=== PATIENT | male | born 1990 | race Caucasian/White ===

== ENCOUNTER 2017-03-20 07:15 | Day surgery (SDC) | payer BC ==
[2017-03-13 22:58] VITALS: BMI 21.4
[~2017-03-20 07:15] MED LIST: DEXAMETHASONE SOD PHOSPHATE 10 MG/ML 1 ML VIAL IV ONE; DEXAMETHASONE SOD PHOSPHATE 4 MG/ML 1 ML VIAL IV ONE; FAMOTIDINE 20 MG/2 ML VIAL IV ONE; HYDROmorphone 0.5 MG/0.5 ML SYRINGE IVP PRN; LACTATED RINGERS 1,000 ML IV SCH; MIDAZOLAM 2 MG/2 ML VIAL IV PRN; ONDANSETRON 4 MG/2 ML VIAL IVP ONE; ceFAZolin 1,000 MG in DEXTROSE/WATER 1 50ML.BAG IV ONE
[2017-03-20] MEDS: OXYMETAZOLINE 0.05% NASL SPRAY 1 SPRAY BOTTLE NASAL ONE ×4 (07:50→08:17)
[2017-03-20] MEDS ORDERED: LIDOCAINE 1% 20 ML VIAL (10MG/ML) FOR IV START INTRADERMA ONE (08:06)
[2017-03-20] MEDS ORDERED: SUCCINYLCHOLINE CHLORIDE 100 MG/5 ML SYR IV ONE (09:10)
[2017-03-20] MEDS ORDERED: MIDAZOLAM 2 MG/2 ML VIAL ONE (09:10)
[2017-03-20] MEDS ORDERED: LIDOCAINE 1% INJ 10MG/ML (20 ML MDV) ONE (09:10)
[2017-03-20] MEDS ORDERED: fentaNYL (PF) 50 MCG/ML 2 ML AMP ONE (09:10)
[2017-03-20] MEDS ORDERED: PROPOFOL 10 MG/ML 20 ML VIAL IV ONE (09:10)
[2017-03-20] MEDS ORDERED: KETOROLAC 30 MG/ML 1 ML VIAL ONE (09:10)
[2017-03-20] MEDS ORDERED: BACITRACIN 500 UNIT/GM OINT 28.4 GM TUBE TOPICAL ONE ×2 (09:16→09:23)
[2017-03-20] MEDS ORDERED: LIDOCAINE 1%-EPI 1:100,000 20 ML VIAL SUBMUCOSAL ONE ×3 (09:16→09:23)
--- NOTE | 2017-03-20 09:55 | P.OP ---
Date of Procedure: 03/20/17 Preoperative Diagnosis: Deviated nasal septum Inferior turbinate hypertrophy Postoperative Diagnosis: Same Procedure(s) Performed: Septoplasty Outfractured and submucous resection of the inferior turbinates Anesthesia: EVONA Surgeon: Agustin Saenz Estimated Blood Loss (ml): 3 Pathology: other (Nasal septal cartilage and bone) Condition: stable Disposition: PACU Indications for Procedure: This is a 26-year-old white male with a history of chronic nasal airway obstruction bilaterally but left greater than right Operative Findings: Nasal septum deviated to the left and the bony and cartilaginous septum, inferior turbinate hypertrophy bilateral Description of Procedure: The patient was brought in the operative suite and placed in a supine position. Patient underwent induction of general anesthesia with oral endotracheal intubation without difficulty. The patient was prepped and draped in usual aseptic fashion. 1% lidocaine with 1-200,000 epinephrine was infused submucosally into both sides nasal septum. While this was taking vasoconstrictive effect the inferior turbinates were infractured with Lockhart elevator partial submucous resection inferior turbinates performed with Coblation which ablated a portion of the submucosal soft tissue and then outfractured with the Lockhart elevator. A left hemitransfixion incision was made with the mucoperichondrial and mucoperiosteal flap on the left elevated. Bony cartilaginous junction was disarticulated and the mucoperiosteal flap on the right was elevated. Bony nasal septal deformities were removed with Susy forceps. An inferior cartilaginous strip was removed leaving a full 1.5 cm caudal strut. Checking intranasally this corrected the nasoseptal deformities and the hemitransfixion incision was closed with a running 4-0 chromic suture. Airway splints coated with bacitracin ointment were placed in the nasal cavities bilaterally and sutured trans-septally with a 4-0 Vicryl suture. Suctioned in oral gastric fashion. Patient allowed emerge from general anesthesia having tolerated procedure well was extubated in the operating suite and transferred to postop recovery area in satisfactory condition.
[2017-03-20 10:14] VITALS: TEMP 97
[2017-03-20 10:33] VITALS: RESP 16
[2017-03-20 12:28] VITALS: BP 111/72; PULSE 57
== END 2017-03-20 12:37 | disposition home or self-care (01) ==
LOC: OR 07:15
PROVIDERS: ATTEND Otolaryngology
DX: J34.2 Deviated nasal septum (principal); J34.3 Hypertrophy of nasal turbinates; Z87.891 Personal history of nicotine dependence; Z79.899 Other long term (current) drug therapy
CPT/HCPCS: 88300; 30520; 30140; J2250; J1100; J2405; J2001; J3010; J1885; J0690; J0330; J2704

== ENCOUNTER 2017-04-21 16:45 | Emergency (ER) | payer BC ==
[2017-04-21] MEDS ORDERED: VANCOMYCIN IV PER PHARMACY 1 EACH MISC MISCELLANE PRN (17:22)
[2017-04-21] MEDS ORDERED: KETOROLAC 30 MG/ML 1 ML VIAL IVP STA (17:23)
--- NOTE | 2017-04-21 17:38 | ED ---
Upper Extremity HPI - General Chief Complaint: Recheck/Abnormal Lab/Rx Stated Complaint: Finger Infection Time Seen by Provider: 04/21/17 17:07 Source: patient Mode of arrival: ambulatory Limitations: no limitations - History of Present Illness Initial Comments: Patient presents with pain and swelling of the right index finger. Symptoms have been progressively worsening over the past 5 days. Patient states he cut the palmar surface of his finger on a piece of sheet metal 2 weeks ago. States it appear to be healing well however now he has discoloration around the area of the cut. Patient states he also smashed the finger between 2 boxes one week ago. Patient states he's been seen in the ER last night, had hand x-ray that was negative. Patient complains of swelling, pain, redness of the left index finger. Patient denies numbness, weakness, fevers, chills, red streaking, nausea, vomiting MD Complaint: Injury to:: right, finger Onset/Timin -: days(s) Other Extremity Injury: Fingers: Right (index finger) Other Injuries: none Worsens With: movement of extremity Treatments Prior to Arrival: other (episom salt soaks) - Related Data Home Medications Medication Instructions Recorded Confirmed Buprenorphine HCl/Naloxone HCl 1 film SL BID 03/12/17 04/21/17 [Suboxone 8 mg-2 mg Sl Film] Acetaminophen Tab [Tylenol Tab] 650 mg PO Q6H PRN 04/21/17 04/21/17 Cephalexin [Keflex] 500 mg PO QID 04/21/17 04/21/17 Ibuprofen [Motrin] 800 mg PO TID PRN 04/21/17 04/21/17 Allergies Allergy/AdvReac Type Severity Reaction Status Date / Time No Known Allergies Allergy Verified 04/21/17 17:16 Review of Systems ROS Statement: Those systems with pertinent positive or pertinent negative responses have been documented in the HPI. ROS Other: All systems not noted in ROS Statement are negative. Constitutional: Denies: fever, chills, weakness ENT: Denies: congestion Respiratory: Denies: cough Cardiovascular: Denies: chest pain Endocrine: Denies: fatigue Gastrointestinal: Denies: abdominal pain, nausea, vomiting Musculoskeletal: Reports: joint swelling, arthralgia (finger) Skin: Reports: change in color, other (erythema L index finger). Denies: rash Neurological: Denies: headache, weakness, numbness, paresthesias Past Medical History Additional Past Medical History / Comment(s): opiate addiction History of Any Multi-Drug Resistant Organisms: None Reported Additional Past Surgical History / Comment(s): rhinoplasty Past Psychological History: No Psychological Hx Reported Smoking Status: Never smoker Past Alcohol Use History: None Reported Past Drug Use History: Opiates General Exam - General Exam Comments Initial Comments: Sitting up in bed. No acute distress. Conversing normally. Calm, pleasant. Well appearing. Limitations: no limitations General appearance: alert, in no apparent distress Head exam: Present: atraumatic, normocephalic Eye exam: Present: normal appearance, PERRL, EOMI ENT exam: Present: mucous membranes moist Neck exam: Present: normal inspection Respiratory exam: Present: normal lung sounds bilaterally. Absent: respiratory distress Cardiovascular Exam: Present: regular rate, normal rhythm GI/Abdominal exam: Present: soft. Absent: distended, tenderness Extremities exam: Present: other (right index finger held in slight flexion. Moderate diffuse swelling of the right index finger. Mild pain with passive extension of the right finger. Mild tenderness along the palmar surface of right index finger. Mild erythema right index finger. 1 cm horizontal laceration across the DIP joint on palmar surface of right index finger, appears well healed, no fluctuance or drainage. ) Neurological exam: Present: alert, oriented X3, other (Left hand neurovascularly intact) Psychiatric exam: Present: normal affect, normal mood Skin exam: Present: warm, dry, intact, erythema Course Vital Signs 04/21/17 17:02 Temperature 97.9 F Pulse Rate 65 Respiratory 20 Rate Blood Pressure 136/74 O2 Sat by Pulse 98 Oximetry Medical Decision Making - Medical Decision Making Given patient's recent laceration, concern for infection and possible tenosynovitis. We'll start empiric therapy with vancomycin and Rocephin. We' ll obtain an hand x-ray to rule out bony injury from recent trauma. White blood cell count within normal range. X-ray of hand shows no obvious fractures. Orthopedic team masonry inspector paged Spoke with [facility] sandy Miller, covering for Dr. Lawson, states patient will need specialty care by hand surgeon, recommended us transfer to [facility]. SPoke with [facility] [employer] Mikki Khan, states hand surgeon for group unavailable, also recommends transfer to [facility]. Spoke with orthopedic surgeon on [facility] Dr. Barrow, updated with patient condition results, agrees with concern for possible tenosynovitis, accepts transfer. Spoke with ER physician Dr. So, updated patient condition results, accepts patient for transfer to the ER. Patient updated without results and plan. We'll transfer to [facility] ER for further evaluation by hand surgeon. Risk-benefit of transfer discussed with patient, he agrees with transfer. EMTALA form signed. - Lab Data Result diagrams: 04/21/17 17:35 04/21/17 17:35 Lab Results 04/21/17 04/21/17 Range/Units 17:35 17:35 WBC 9.2 (3.8-10.6) k/uL RBC 4.18 L (4.30-5.90) m/uL Hgb 12.8 L (13.0-17.5) gm/dL Hct 36.5 L (39.0-53.0) % MCV 87.4 (80.0-100.0) fL MCH 30.6 (25.0-35.0) pg MCHC 35.0 (31.0-37.0) g/dL RDW 12.0 (11.5-15.5) % Plt Count 245 (150-450) k/uL Neutrophils % 77 % Lymphocytes % 14 % Monocytes % 4 % Eosinophils % 3 % Basophils % 1 % Neutrophils # 7.1 (1.3-7.7) k/uL Lymphocytes # 1.3 (1.0-4.8) k/uL Monocytes # 0.4 (0-1.0) k/uL Eosinophils # 0.2 (0-0.7) k/uL Basophils # 0.1 (0-0.2) k/uL Sodium 144 (137-145) mmol/L Potassium 4.0 (3.5-5.1) mmol/L Chloride 106 (98-107) mmol/L Carbon Dioxide 28 (22-30) mmol/L Anion Gap 10 mmol/L BUN 13 (9-20) mg/dL Creatinine 0.70 (0.66-1.25) mg/dL Est GFR (MDRD) Af Amer >60 (>60 ml/min/1.73 sqM) Est GFR (MDRD) Non-Af >60 (>60 ml/min/1.73 sqM) Glucose 140 H (74-99) mg/dL Calcium 9.3 (8.4-10.2) mg/dL Disposition Clinical Impression: Flexor tenosynovitis of finger Disposition: OTHER INSTITUTION NOT DEFINED Condition: Good Referrals: Jacobo Arnold MD [Primary Care Provider] - 1-2 days - Out of Hospital Transfer - Req. Specs Out of Hospital Transfer - Requested Specifics: Other Non-Acute (Transfered to [facility])
[2017-04-21 17:41] LABS: Basophils # (A) 0.1 k/uL (0-0.2); Basophils % (A) 1 %; Eosinophils # (A) 0.2 k/uL (0-0.7); Eosinophils % (A) 3 %; HCT 36.5 % (39.0-53.0); HGB 12.8 gm/dL (13.0-17.5); Lymphocytes # (A) 1.3 k/uL (1.0-4.8); Lymphocytes % (A) 14 %; MCH 30.6 pg (25.0-35.0); MCV 87.4 fL (80.0-100.0); Mean Platelet Volume 6.4; Monocytes # (A) 0.4 k/uL (0-1.0); Monocytes % (A) 4 %; Neutrophils # (A) 7.1 k/uL (1.3-7.7); Neutrophils % (A) 77 %; Platelet Count 245 k/uL (150-450); RBC 4.18 m/uL (4.30-5.90); WBC 9.2 k/uL (3.8-10.6)
[2017-04-21 17:59] LABS: Anion Gap 10 mmol/L; Blood Urea Nitrogen 13 mg/dL (9-20); Calcium 9.3 mg/dL (8.4-10.2); Carbon Dioxide 28 mmol/L (22-30); Chloride 106 mmol/L (98-107); Glucose 140 mg/dL (74-99); Sodium 144 mmol/L (137-145)
[2017-04-21] MEDS ORDERED: VANCOMYCIN 1,250 MG in SODIUM CHLORIDE 0.9% 250 ML IVPB SCH (18:15)
[2017-04-21] MEDS ORDERED: cefTRIAXone IN SWFI 1,000 MG/10 ML SYRINGE IVP SCH (18:15)
[2017-04-21 18:56] VITALS: BP 136/79; PULSE 55; RESP 16; TEMP 97.8
--- NOTE | 2017-04-21 19:03 | XR ---
EXAMINATION TYPE: XR hand limited RT DATE OF EXAM: 04/21/2017 COMPARISON: NONE HISTORY: Finger injury second digit TECHNIQUE: 2 view right hand FINDINGS: Catheter is present within the dorsum of the hand. Some mild soft tissue swelling is over t he distal metacarpal phalangeal joint spaces. Joint spaces are preserved. No acute fractures are evid ent. No radiopaque foreign bodies are evident. The index finger is slightly swollen. IMPRESSION: 1. Mild soft tissue swelling over the index finger. 2. No radiopaque foreign bodies. 3. No acute osseous abnormality. 4. Follow-up exams can be performed 7-10 days from acute trauma for continued pain.
== END 2017-04-21 19:20 | disposition short-term general hospital (02) ==
LOC: EC 16:45
DX: M65.841 Other synovitis and tenosynovitis, right hand (principal); S61.210D Laceration without foreign body of right index finger without damage to nail, subsequent encounter; Z79.899 Other long term (current) drug therapy; W23.0XXD Caught, crushed, jammed, or pinched between moving objects, subsequent encounter
CPT/HCPCS: 36415; 80048; 85025; 73120; 99285; 96365; 96375 ×2; J3370; J0696; J1885

== ENCOUNTER → 2020-03-15 | Outpatient (CLI) | payer BC | END | disposition home or self-care (01) | LOC: LABWHC1 13:51 | PROVIDERS: ATTEND Student in an Organized Health Care Education/Training Program | DX: U07.1 COVID-19 (principal) ==

== ENCOUNTER → 2020-03-22 | Day surgery (SDC) | payer BC ==
[~2020-03-22] MED LIST changes: +ACETAMINOPHEN IV (For NPO) 1,000 MG/100 ML VIAL ONE; -DEXAMETHASONE SOD PHOSPHATE 10 MG/ML 1 ML VIAL IV ONE; -FAMOTIDINE 20 MG/2 ML VIAL IV ONE; +GLYCOPYRROLATE 0.2 MG/ML 2 ML VIAL ONE; +HEPARIN SODIUM,PORCINE 5,000 UNIT/ML 1 ML VIAL SQ PRN; +HYDROcodone/APAP 5-325MG 1 EACH TAB ONE; +HYDROcodone/APAP 5-325MG 1 EACH TAB PO ONE; -HYDROmorphone 0.5 MG/0.5 ML SYRINGE IVP PRN; +KETAMINE 10 MG/ML 20 ML VIAL ONE; +LACTATED RINGERS 1,000 ML IV ONE; +LIDOCAINE 1% (10MG/ML) FOR IV START INTRADERMA PRN; +LIDOCAINE 1% INJ 10MG/ML (20 ML MDV) ONE; +LIDOCAINE 1%-EPI 1:100,000 20 ML VIAL SQ ONE; +MIDAZOLAM 2 MG/2 ML VIAL ONE; +NEOSTIGMINE 1 MG/ML 10 ML VIAL ONE; +PROPOFOL 10 MG/ML 20 ML VIAL IV ONE; +ROCURONIUM 10 MG/ML (10 ML VIAL) IV ONE; +ROPIVACAINE 5 MG/ML 30 ML VIAL ONE; -ceFAZolin 1,000 MG in DEXTROSE/WATER 1 50ML.BAG IV ONE; +fentaNYL (PF) 50 MCG/ML 2 ML AMP ONE
--- NOTE | 2020-03-22 12:23 | P.OP ---
Date of Procedure: 03/22/20 Preoperative Diagnosis: Right inguinal hernia Postoperative Diagnosis: Same Procedure(s) Performed: Robotic-assisted right inguinal hernia repair Anesthesia: VERNA Surgeon: Bruce Denis Estimated Blood Loss (ml): 5 Pathology: none sent Disposition: PACU Description of Procedure: Patient is brought operative suite remained supine position underwent general endotracheal anesthesia per Department of anesthesia prepped and draped usual sterile fashion timeout performed correct patient correct procedure correct site was verified. A 270 incision was made inferior to the umbilicus carried down the fascia which was incised and entered in the usual fashion the abdomen was insufflated no injuries were noted 8 mm incisions were made lateral to the umbilicus on both sides and ports were placed under direct visualization the robot was then docked. The right groin was approached there was a small hernia noted there was no hernia noted on the left side. The peritoneum was taken down medially to the pubis laterally and posteriorly to the psoas. And the hernia was reduced off the cord structures. A pro admissions manager rn mesh was placed and the peritoneum was then reapproximated using 2-0V lock suture. The needle was removed and the midline fascia port site was closed with an 0 Vicryl in an interrupted fashion with the aid of a Alex-Jessica suture passer. The abdomen was desufflated hemostasis was noted prior to this. The incisions were closed with 4-0 sub cuticular Vicryl suture followed by skin glue. Patient tolerated the procedure well no apparent complications Plan - Discharge Summary Discharge Rx Participant: No New Discharge Prescriptions: No Action Buprenorphine HCl/Naloxone HCl [Suboxone 8 mg-2 mg Sl Film] 1 film SL BID Ibuprofen [Motrin Ib] 200 - 400 mg PO Q6H PRN PRN Reason: Pain Discharge Medication List Buprenorphine HCl/Naloxone HCl [Suboxone 8 mg-2 mg Sl Film] 1 film SL BID 03/12/17 [History] Ibuprofen [Motrin Ib] 200 - 400 mg PO Q6H PRN 03/17/20 [History]
[2020-03-22 12:35] VITALS: TEMP 98
[2020-03-22 13:16] VITALS: RESP 16
--- NOTE | 2020-03-22 13:16 | P.ANPRN ---
Procedure Note - Anesthesia - Nerve Block Performed Right Transversus Abdominis Time Out Performed: Yes (:) Date of Procedure: 03/22/20 Procedure Start Time: Procedure Stop Time: Location of Patient: PreOp Indication: Acute Post-Operative Pain, Requested by Surgeon (Dr Denis) Sedation Type: Sedate with meaningful contact maintained Preparation: Sterile Prep Position: Supine Catheter: None Needle Types: Pajunk (22g) Ultrasound used to visualize needle placement: Yes Ultrasound used to observe medication spread: Yes Injectate: 0.5% Ropivacaine (see comment for volume) (15cc) Blood Aspirated: No Pain Paresthesia on Injection Noted: No Resistance on Injection: Normal Image Stored and Saved: Yes Events: Uneventful and Well Tolerated
[2020-03-22] MEDS: HYDROmorphone 0.5 MG/0.5 ML SYRINGE IVP PRN ×4 (13:20→13:34)
[2020-03-22] MEDS: fentaNYL (PF) 50 MCG/ML 2 ML AMP IV ONE ×2 (13:43→13:50)
[2020-03-22 15:00] VITALS: BP 127/78; PULSE 81
== END | disposition home or self-care (01) ==
LOC: OR 09:35
PROVIDERS: ATTEND Student in an Organized Health Care Education/Training Program
DX: K40.90 Unilateral inguinal hernia, without obstruction or gangrene, not specified as recurrent (principal); Z98.52 Vasectomy status; Z98.890 Other specified postprocedural states
CPT/HCPCS: 49650; 64486; 86900; 86901; 86850; C1781; J2250; J1644; J1100; J2710; J0690; J2405; J2001; J3010; J2795; J0131; J2704; J1170; 64488

== ENCOUNTER 2020-04-03 03:34 | Emergency (ER) | payer BC ==
[2020-04-03 03:41] VITALS: BP 130/49; PULSE 65; RESP 19; TEMP 98.9
[2020-04-03] MEDS ORDERED: KETOROLAC 15 MG/ML 1 ML VIAL IM STA (04:21)
--- NOTE | 2020-04-03 04:53 | XR ---
EXAM: XR Right Hip With Pelvis When Performed, 2 or 3 Views CLINICAL HISTORY: ITS.REASON XR Reason: pain TECHNIQUE: Two or three views of the right hip with pelvis when performed. COMPARISON: none available FINDINGS: Bones/joints: No acute fracture or dislocation of the right hip. Joint spaces are preserved. No acute pelvic fractures. Bilateral femoral heads overlie their respective acetabula. No widening of the pubic symphysis or sacroiliac joints. Soft tissues: Phleboliths in the left hemipelvis. Moderate fecal burden throughout the colon. IMPRESSION: No acute fracture or dislocation of the right hip.
[2020-04-03] MEDS ORDERED: ORPHENADRINE 30 MG/ML 2 ML VIAL IM STA (05:00)
--- NOTE | 2020-04-03 05:36 | ED ---
Extremity Problem HPI - General Chief complaint: Extremity Problem,Nontraumatic Stated complaint: Right leg pain Time Seen by Provider: 04/03/20 03:43 Source: patient Mode of arrival: ambulatory Limitations: no limitations - History of Present Illness Initial comments: This patient is 30-year-old man with recent inguinal hernia surgery. Patient states he had been in bed tonight, he believes that he rotated his right hip and he felt a pop and then started experiencing right hip pain. The patient states that the location is very close to the location of his hernia pain and he was concerned about possibility of that recurring. The patient denies direct blow to the area. There is no weakness or numbness distal to the hip. He does note that the pain seems to be worse with hip rotation or palpation at the joint. MD Complaint: extremity pain Onset/Timin -: hour(s) Location: right, lower extremity History of Same: No -: Yes arthralgia Radiation: none Quality: aching Consistency: constant Improves with: nothing Worsens with: weight bearing Associated Symptoms: denies other symptoms - Related Data Home Medications Medication Instructions Recorded Confirmed Buprenorphine HCl/Naloxone HCl 1 film SL BID 03/12/17 03/22/20 [Suboxone 8 mg-2 mg Sl Film] Ibuprofen [Motrin Ib] 200 - 400 mg PO Q6H PRN 03/17/20 03/22/20 Previous Rx's Medication Instructions Recorded HYDROcodone/APAP 5-325MG [[place] 1 tab PO Q6HR PRN 3 Days #12 tab 03/22/20 5-325] Ibuprofen [Motrin] 600 mg PO Q8HR PRN #20 tab 04/03/20 Allergies Allergy/AdvReac Type Severity Reaction Status Date / Time No Known Allergies Allergy Verified 04/03/20 03:41 Review of Systems ROS Statement: Those systems with pertinent positive or pertinent negative responses have been documented in the HPI. ROS Other: All systems not noted in ROS Statement are negative. Constitutional: Denies: fever, chills Respiratory: Denies: dyspnea Gastrointestinal: Denies: abdominal pain, nausea, vomiting, diarrhea, constipation Genitourinary: Denies: dysuria, hematuria, testicular pain, testicular mass Musculoskeletal: Reports: as per HPI, arthralgia. Denies: back pain Skin: Denies: rash (Right hip) Neurological: Denies: headache, weakness, numbness, paresthesias Past Medical History Additional Past Medical History / Comment(s): opiate addiction (PAIN [employer]S) INFECTED FINGER History of Any Multi-Drug Resistant Organisms: None Reported Additional Past Surgical History / Comment(s): rhinoplasty RIGHT POINTER CUT AND INFECTED I & D (GISELL LANDA). Past Anesthesia/Blood Transfusion Reactions: No Reported Reaction Past Psychological History: Anxiety Smoking Status: Former smoker Past Alcohol Use History: Rare Past Drug Use History: Marijuana, Opiates - Past Family History Mother Family Medical History: No Reported History General Exam Limitations: no limitations General appearance: alert Respiratory exam: Present: normal lung sounds bilaterally. Absent: respiratory distress, wheezes, rales, rhonchi, stridor Cardiovascular Exam: Present: regular rate, normal rhythm, normal heart sounds. Absent: systolic murmur, diastolic murmur, rubs, gallop GI/Abdominal exam: Present: soft. Absent: distended, tenderness, guarding, rebound, rigid, pulsatile mass, hernia Extremities exam: Present: normal inspection, full ROM, tenderness, normal capillary refill. Absent: pedal edema, joint swelling, calf tenderness Back exam: Present: normal inspection. Absent: CVA tenderness (R), CVA tenderness (L) Skin exam: Present: warm, dry, intact, normal color. Absent: rash Course Vital Signs 04/03/20 03:37 Temperature 98.9 F Pulse Rate 65 Respiratory 19 Rate Blood Pressure 130/49 O2 Sat by Pulse 100 Oximetry Medical Decision Making - Medical Decision Making Patient is 30-year-old man with recent hernia repair. No physical exam evidence of failure of surgical repair. Patient's pain does seem to be related to the joint. The films are normal, and the patient has had marked improvement following analgesia. Discussed appropriate further care and follow-up as well as repeat imaging should there be no improvement. Disposition Clinical Impression: Hip pain, right Disposition: HOME SELF-CARE Condition: Good Instructions (If sedation given, give patient instructions): Hip Pain (ED) Prescriptions: Ibuprofen [Motrin] 600 mg PO Q8HR PRN #20 tab PRN Reason: Pain Is patient prescribed a controlled substance at d/c from ED?: No Referrals: Jacobo Arnold MD [Primary Care Provider] - 1-2 days
== END 2020-04-03 05:50 | disposition home or self-care (01) ==
LOC: EC 03:34
DX: M25.551 Pain in right hip (principal); Z79.899 Other long term (current) drug therapy; Z87.891 Personal history of nicotine dependence
CPT/HCPCS: 73502; 99283; 96372 ×2; J2360; J1885

== ENCOUNTER 2021-05-10 20:27 | Emergency (ER) | payer BC ==
[2021-05-10 20:30] VITALS: RESP 18
[2021-05-10] MEDS ORDERED: ACETAMINOPHEN TAB 500 MG TAB PO STA (20:44)
--- NOTE | 2021-05-10 20:48 | ED ---
URI HPI - General Chief Complaint: Upper Respiratory Infection Stated Complaint: fever, chest pain Time Seen by Provider: 05/10/21 20:32 Source: patient, RN notes reviewed Mode of arrival: ambulatory Limitations: no limitations - History of Present Illness Initial Comments: This is a 31 year old male who presents to the emergency department for URI symptoms. For the last 2 days he has had fevers, body aches, chills, coughing, congestion, chest pain, and headaches. The cough is described as very productive with green sputum. Denies any sick contacts. He is fully vaccinated against COVID as of 4 months ago. He took 800mg of Ibuprofen before coming to the emergency department for a temperature of 104 degrees F. He has had some relief with nasal decongestant spray, which he started using today. MD Complaint: fever, cough, sore throat, nasal congestion, sinus pain Improves With: OTC nasal spray Associated Symptoms: fever, myalgias, headache, rhinorrhea, nasal congestion, cough, chest pain - Related Data Home Medications Medication Instructions Recorded Confirmed Buprenorphine HCl/Naloxone HCl 1 film SL BID 03/12/17 05/10/21 [Suboxone 8 mg-2 mg Sl Film] Baclofen [Lioresal] 20 mg PO BID PRN 05/10/21 05/10/21 Allergies Allergy/AdvReac Type Severity Reaction Status Date / Time No Known Allergies Allergy Verified 05/10/21 21:33 Review of Systems ROS Statement: Those systems with pertinent positive or pertinent negative responses have been documented in the HPI. ROS Other: All systems not noted in ROS Statement are negative. Constitutional: Reports: fever, chills ENT: Denies: ear pain, throat pain Respiratory: Reports: cough. Denies: dyspnea Cardiovascular: Reports: chest pain. Denies: palpitations Endocrine: Reports: fatigue Gastrointestinal: Denies: abdominal pain, nausea, vomiting, diarrhea Genitourinary: Denies: urgency, dysuria Musculoskeletal: Reports: myalgia Skin: Denies: rash Neurological: Reports: headache Past Medical History Additional Past Medical History / Comment(s): opiate addiction (PAIN MEDS) INF ECTED FINGER History of Any Multi-Drug Resistant Organisms: None Reported Additional Past Surgical History / Comment(s): rhinoplasty RIGHT POINTER CUT AND INFECTED I & D (GISELL LANDA). Past Anesthesia/Blood Transfusion Reactions: No Reported Reaction Past Psychological History: Anxiety Smoking Status: Former smoker Past Alcohol Use History: Rare Past Drug Use History: Marijuana, Opiates - Past Family History Mother Family Medical History: No Reported History General Exam Limitations: no limitations General appearance: alert, in no apparent distress Head exam: Present: atraumatic, normocephalic, normal inspection Respiratory exam: Present: normal lung sounds bilaterally. Absent: respiratory distress, wheezes, rales, rhonchi, stridor Cardiovascular Exam: Present: regular rate, normal rhythm, normal heart sounds. Absent: systolic murmur, diastolic murmur, rubs, gallop, clicks GI/Abdominal exam: Present: soft, normal bowel sounds. Absent: distended, tenderness, guarding, rebound, rigid Neurological exam: Present: alert, oriented X3, CN II-XII intact Psychiatric exam: Present: normal affect, normal mood Skin exam: Present: warm, dry, intact, normal color. Absent: rash Course Vital Signs 05/10/21 05/10/21 05/10/21 20:28 20:58 22:07 Temperature 102.9 F H 98.5 F Pulse Rate 128 H 109 H 95 Respiratory 18 Rate Blood Pressure 128/76 O2 Sat by Pulse 96 Oximetry Medical Decision Making - Medical Decision Making This is a 31 year old male who presents to the emergency department with URI symptoms x2 days. COVID and influenza testing was negative and chest XR was unremarkable. 1g of Tylenol was provided in the emergency department and the patient's temperature went down to 98.5 degrees F. Original EKG revealed atrial flutter with RVR and patient was subsequently placed on the laboratory monitor. Patient did have a regular rate and rhythm on physical exam. Repeat EKG ordered out of suspicion for the first EKG being inaccurate. Repeat EKG revealed normal sinus rhythm with no abnormalities. Lab work and UA obtained for further evaluation, revealing an elevated white blood cell count, consistent with an infection as suspected. Patient given a bolus of 500 mL normal saline for dehydration. I offered a prescription for tessalon perles to help with the cough, however the patient declined. Patient stable for discharge. Advised alternating Tylenol and Motrin for fever control, drinking plenty of fluids, and continuing with symptomatic care. Instructed him to limit the use of nasal decongestants to 3 days to avoid dependence. Return precautions reviewed in depth, the patient is instructed to return to the emergency department if symptoms worsen or do not improve. Patient verbalized understanding. This case was discussed in detail with the attending ED physician. Presentation, findings, and treatment plan discussed in detail as well. - Lab Data Result diagrams: 05/10/21 23:10 Lab Results 05/10/21 05/10/21 05/10/21 Range/Units 20:59 23:05 23:10 WBC 14.7 H (3.8-10.6) k/uL RBC 4.43 (4.30-5.90) m/uL Hgb 13.8 (13.0-17.5) gm/dL Hct 39.2 (39.0-53.0) % MCV 88.5 (80.0-100.0) fL MCH 31.2 (25.0-35.0) pg MCHC 35.2 (31.0-37.0) g/dL RDW 12.1 (11.5-15.5) % Plt Count 221 (150-450) k/uL MPV 6.9 Neutrophils % 83 % Lymphocytes % 9 % Monocytes % 6 % Eosinophils % 1 % Basophils % 0 % Neutrophils # 12.2 H (1.3-7.7) k/uL Lymphocytes # 1.3 (1.0-4.8) k/uL Monocytes # 0.8 (0-1.0) k/uL Eosinophils # 0.1 (0-0.7) k/uL Basophils # 0.1 (0-0.2) k/uL Plasma Lactic Acid Mario (0.7-2.0) mmol/L Urine Color Yellow Urine Appearance Clear (Clear) Urine pH 5.5 (5.0-8.0) Ur Specific Anita 1.033 (1.001-1.035) Urine Protein Trace H (Negative) Urine Glucose (UA) Negative (Negative) Urine Ketones Negative (Negative) Urine Blood Negative (Negative) Urine Nitrite Negative (Negative) Urine Bilirubin Negative (Negative) Urine Urobilinogen <2.0 (<2.0) mg/dL Ur Leukocyte Esterase Negative (Negative) Influenza Type A (PCR) Not Detected (Not Detectd) Influenza Type B (PCR) Not Detected (Not Detectd) RSV (PCR) Not Detected (Not Detectd) SARS-CoV-2 (PCR) Not Detected (Not Detectd) 05/10/21 Range/Units 23:10 WBC (3.8-10.6) k/uL RBC (4.30-5.90) m/uL Hgb (13.0-17.5) gm/dL Hct (39.0-53.0) % MCV (80.0-100.0) fL MCH (25.0-35.0) pg MCHC (31.0-37.0) g/dL RDW (11.5-15.5) % Plt Count (150-450) k/uL MPV Neutrophils % % Lymphocytes % % Monocytes % % Eosinophils % % Basophils % % Neutrophils # (1.3-7.7) k/uL Lymphocytes # (1.0-4.8) k/uL Monocytes # (0-1.0) k/uL Eosinophils # (0-0.7) k/uL Basophils # (0-0.2) k/uL Plasma Lactic Acid Mario 0.5 L (0.7-2.0) mmol/L Urine Color Urine Appearance (Clear) Urine pH (5.0-8.0) Ur Specific Anita (1.001-1.035) Urine Protein (Negative) Urine Glucose (UA) (Negative) Urine Ketones (Negative) Urine Blood (Negative) Urine Nitrite (Negative) Urine Bilirubin (Negative) Urine Urobilinogen (<2.0) mg/dL Ur Leukocyte Esterase (Negative) Influenza Type A (PCR) (Not Detectd) Influenza Type B (PCR) (Not Detectd) RSV (PCR) (Not Detectd) SARS-CoV-2 (PCR) (Not Detectd) - EKG Data EKG shows normal: sinus rhythm Rate: normal Interpretation: normal EKG - Radiology Data Radiology results: report reviewed, image reviewed Disposition Clinical Impression: Viral respiratory illness Disposition: HOME SELF-CARE Instructions (If sedation given, give patient instructions): Upper Respiratory Infection (ED) Additional Instructions: Return to the emergency department if your symptoms worsen or do not improve. Alternate with Tylenol and Motrin for fevers and pain control. Drink plenty of fluids. Is patient prescribed a controlled substance at d/c from ED?: No Referrals: Jacobo Arnold MD [Primary Care Provider] - 1-2 days
--- NOTE | 2021-05-10 21:13 | XR ---
EXAMINATION TYPE: XR chest 2V DATE OF EXAM: 05/10/2021 COMPARISON: NONE HISTORY: Short of breath TECHNIQUE: 2 views FINDINGS: Heart and mediastinum are normal. Lungs are clear. Diaphragm is normal. Bony thorax is inta ct. IMPRESSION: Normal chest.
[2021-05-10 22:32] LABS: Influenza A Not Detected (Not Detectd); Influenza B Not Detected (Not Detectd)
[2021-05-10] MEDS ORDERED: SODIUM CHLORIDE 0.9% 500 ML 500 ML IV STA (22:57)
[2021-05-10 23:27] LABS: Appearance,Urine Clear (Clear); Bilirubin,Urine Negative (Negative); Blood,Urine Negative (Negative); Color,Urine Yellow; Glucose,Urine (UA) Negative (Negative); Ketones,Urine Negative (Negative); Leukocyte Esterase,Urine Negative (Negative); Nitrite,Urine Negative (Negative); PH, Urine 5.5 (5.0-8.0); Protein,Urine Trace (Negative); Specific Gravity,Urine 1.033 (1.001-1.035); Urobilinogen,Urine <2.0 mg/dL (<2.0)
[2021-05-10 23:28] LABS: Basophils # (A) 0.1 k/uL (0-0.2); Basophils % (A) 0 %; Eosinophils # (A) 0.1 k/uL (0-0.7); Eosinophils % (A) 1 %; HCT 39.2 % (39.0-53.0); HGB 13.8 gm/dL (13.0-17.5); Lymphocytes # (A) 1.3 k/uL (1.0-4.8); Lymphocytes % (A) 9 %; MCH 31.2 pg (25.0-35.0); MCHC 35.2 g/dL (31.0-37.0); MCV 88.5 fL (80.0-100.0); Mean Platelet Volume 6.9; Monocytes # (A) 0.8 k/uL (0-1.0); Monocytes % (A) 6 %; Neutrophils # (A) 12.2 k/uL (1.3-7.7); Neutrophils % (A) 83 %; Platelet Count 221 k/uL (150-450); RBC 4.43 m/uL (4.30-5.90); RDW 12.1 % (11.5-15.5); WBC 14.7 k/uL (3.8-10.6)
[2021-05-10 23:41] LABS: ALT 21 U/L (4-49); AST 30 U/L (17-59); African American GFR (CKD) >90 (>60 ml/min/1.73 sqM); Albumin 4.4 g/dL (3.5-5.0); Alkaline Phosphatase 73 U/L (38-126); Anion Gap 12 mmol/L; Blood Urea Nitrogen 13 mg/dL (9-20); Carbon Dioxide 25 mmol/L (22-30); Chloride 99 mmol/L (98-107); Glucose 109 mg/dL (74-99); Non-African American GFR(CKD) >90 (>60 ml/min/1.73 sqM); Potassium 4.1 mmol/L (3.5-5.1); Sodium 136 mmol/L (137-145); Total Bilirubin 1.2 mg/dL (0.2-1.3); Total Protein 7.3 g/dL (6.3-8.2)
[2021-05-11 00:16] VITALS: BP 120/67; PULSE 81; TEMP 97.5
== END 2021-05-11 00:16 | disposition home or self-care (01) ==
LOC: EC 20:27
DX: B34.9 Viral infection, unspecified (principal); F41.9 Anxiety disorder, unspecified; F12.90 Cannabis use, unspecified, uncomplicated; Z87.891 Personal history of nicotine dependence; Z20.822 Contact with and (suspected) exposure to COVID-19
CPT/HCPCS: 36415; 71046; 80053; 81003; 83605; 85025; 87636; 93005; 96360; 99285

== ENCOUNTER → 2022-07-31 | Outpatient (CLI) | payer BC ==
--- NOTE | 2022-07-31 17:09 | P.SLEEP ---
History of Present Illness H&P Date: 07/31/22 Chief Complaint: Insomnia This is a 32-year-old male patient who is coming in for difficulties in sleep initiation and maintenance. The patient has previous history of Vicodin dependence and currently he is on Suboxone 4 mg by mouth daily. He has had issues with insomnia since teenager years. Currently is going to bed at around 9 PM and is getting out of bed at around 5 AM. He struggles to fall asleep and he averages around 3-4 hours of sleep per night. His sleep is fragmented. He wakes up and sometimes is unable to generate sleep again. He feels excessively fatigued and sleepy during the day. No snoring. No weight gain. In fact he is a slim and thin gentleman. Denies having any choking episodes or gasping for air. No significant symptoms of restlessness and his lower extremities. Occasionally grinds his teeth. Over the years, he has had some issues with anxiety and depression and currently is not receiving any treatment. On a separate note, the patient has had issues with nasal septal deviation. He has undergone surgery by ENT. He has already utilized Afrin for many years and he has chronic congestion and nasal plugging to the point where the patient was unable to breathe through his nose.. No issues with pain. No issues with chest pain or heartburn or shortness of breath overnight. No nightmares. No alcohol consumption. He drinks red bull. He quit smoking and he is a ex-smoker used to smoke half pack of cigarettes a day. during the day to give himself stimulated. Coffee consumption is minimal. He is an ex-smoker. Review of Systems Constitutional: Reports daytime sleepiness, Reports fatigue Eyes: denies as per HPI, denies blurred vision, denies bulging eye, denies decreased vision, denies diplopia, denies discharge, denies dry eye, denies irritation, denies itching, denies pain, denies photophobia, denies loss of peripheral vision, denies loss of vision, denies tunnel vision/blind spots Ears: deny: decreased hearing, ear discharge, earache, tinnitus Ears, nose, mouth and throat: Reports as per HPI, Reports nasal congestion Breasts: absent: as per HPI, gynecomastia Cardiovascular: Reports as per HPI Respiratory: Reports as per HPI Gastrointestinal: Reports as per HPI Genitourinary: Reports as per HPI Musculoskeletal: absent: ankle pain, ankle stiffness, ankle swelling Integumentary: Reports as per HPI Neurological: Reports as per HPI Psychiatric: Reports as per HPI Endocrine: Reports as per HPI Hematologic/Lymphatic: Reports as per HPI Allergic/Immunologic: Reports as per HPI Past Medical History Additional Past Medical History / Comment(s): opiate addiction (PAIN MEDS) INFECTED FINGER History of Any Multi-Drug Resistant Organisms: None Reported Additional Past Surgical History / Comment(s): rhinoplasty RIGHT POINTER CUT AND INFECTED I & D (GISELL LANDA). Past Anesthesia/Blood Transfusion Reactions: No Reported Reaction Past Psychological History: Anxiety Smoking Status: Former smoker Past Alcohol Use History: Rare Past Drug Use History: Marijuana, Opiates - Past Family History Mother Family Medical History: No Reported History Medications and Allergies Home Medications Medication Instructions Recorded Confirmed Type Buprenorphine HCl/Naloxone HCl 1 film SL BID 03/12/17 05/10/21 History [Suboxone 8 mg-2 mg Sl Film] Baclofen [Lioresal] 20 mg PO BID PRN 05/10/21 05/10/21 History Allergies Allergy/AdvReac Type Severity Reaction Status Date / Time No Known Allergies Allergy Verified 05/10/21 21:33 Physical Exam BP is 125/73, pulse is 55, respirations 12, temperature is 97.6 and the pulse ox is 97% on room air oxygen, body mass index is 24, the size of the neck is 15 inches The patient appeared well nourished and normally developed. Vital signs as documented. Head exam is unremarkable. No scleral icterus or corneal arcus noted. Neck is without jugular venous distension, thyromegaly, or carotid bruits. Carotid upstrokes are brisk bilaterally. Lungs are clear to auscultation and percussion. Cardiac exam reveals the PMI to be normally sized and situated. Rhythm is regular. First and second heart sounds normal. No murmurs, rubs or gallops. Abdominal exam reveals normal bowel sounds, no masses, no organomegaly and no aortic enlargement. Extremities are nonedematous and both femoral and pedal pulses are normal.Examination of the skin revealed no evidence of significant rashes, suspicious appearing nevi or other concerning lesions.Neurologically, the patient is awake and alert and the patient does not have any focal neurological deficit. Cranial nerves are essentially intact. Assessment and Plan Plan: Chronic insomnia, likely to have any underlying sleep apnea this point in time based on the reported history.. The patient's sleep is fragmented. He has poor sleep hygiene measures. He has misconception is about sleep apnea and is trying to spend a lot of hours in bed. At the same time he has excessive nasal plugging and oral dryness which is fragmenting his sleep causing significant sleep fragmentation arousals. Chronic nasal congestion and plugging, rule out rhinitis medicamentosa. The patient is a mouth breather and the patient is having excessive oral dryness which is affecting his ability to maintain sleep overnight History of nasal septal deviation with previous rhinoplasty History of opiate dependence currently on Suboxone Plan Refer this patient back to ENT Very important to achieve nasal patency to improve his sleep quality and for that reason another ENT evaluation will be needed for this patient Principles of sleep resection were discussed along with the numbness control Will improve sleep hygiene measures Stop trazodone No need for any hypnotic agents for now We'll continue to follow and the patient will see her back in 3 months for follow-up. Sleep Note - Sleep Note Sleep Note: Temperature: Pulse Rate: Respiratory Rate: Blood Pressure: SpO2: Height: Weight: BMI: Neck Circumference:
== END ==
LOC: SLEEP 14:24
PROVIDERS: ATTEND Internal Medicine Critical Care Medicine
DX: G47.00 Insomnia, unspecified (principal); J34.2 Deviated nasal septum; F11.20 Opioid dependence, uncomplicated; Z87.891 Personal history of nicotine dependence
CPT/HCPCS: 99211

== ENCOUNTER 2024-09-27 15:15 | Emergency (ER) | payer OTHER ==
[2024-09-27] MEDS: HYDROmorphone 1 MG/ML 1 ML SYRINGE IM STA (15:36)
[2024-09-27] MEDS: KETOROLAC 15 MG/ML 1 ML VIAL IM STA (15:46)
[2024-09-27] MEDS: DIPH,PERTUS(ACELL)TETVAC-LF 0.5 ML VIAL IM ONE (15:48)
--- NOTE | 2024-09-27 15:54 | XR ---
EXAMINATION TYPE: XR foot complete LT DATE OF EXAM: 09/27/2024 3:48 PM COMPARISON: None. CLINICAL INDICATION: Male, 34 years old with history of dog bite; PHH, pain TECHNIQUE: XR foot complete LT examined in the AP, oblique, and lateral projections. FINDINGS: No evidence of any acute osseous pathology. No evidence of osseous erosion to suggest osteomyelitis. No radiopaque foreign body. IMPRESSION: No acute osseous abnormality. [facility], , 09/27/2024 3:52 PM
--- NOTE | 2024-09-27 15:56 | XR ---
EXAMINATION TYPE: XR hand complete LT DATE OF EXAM: 09/27/2024 3:48 PM COMPARISON: None. CLINICAL INDICATION: Male, 34 years old with history of dog bite; PHH, pain TECHNIQUE: XR hand complete LT Frontal, lateral and oblique views were obtained. FINDINGS: Normal alignment of the visualized joints. No acute osseous pathology is identified. No e vidence of soft tissue swelling. No significant degeneration. No acute focal osseous erosion or aggre ssive periosteal reaction. Soft tissue gas and swelling adjacent to the second and third metacarpal h brynn on frontal view. IMPRESSION: No acute osseous pathology. [facility], , 09/27/2024 3:53 PM
--- NOTE | 2024-09-27 17:11 | ED ---
Animal Bite HPI - General Chief Complaint: Animal Bite Stated Complaint: Dog bite wound Time Seen by Provider: 09/27/24 15:27 Source: patient, family Mode of arrival: wheelchair Limitations: no limitations - History of Present Illness Initial Comments: 34-year-old male presenting with chief complaint of dog bite. The bite was from his own dog, his dogs were fighting and he tried to break it up. He has punctures to the left hand left foot. Unsure when his last tetanus was. He does have full range of motion and sensation. Though he does have increased pain with range of motion. - Related Data Home Medications Medication Instructions Recorded Confirmed Buprenorphine HCl/Naloxone HCl 1 film SL BID 03/12/17 05/10/21 [Suboxone 8 mg-2 mg Sl Film] Baclofen [Lioresal] 20 mg PO BID PRN 05/10/21 05/10/21 Previous Rx's Medication Instructions Recorded Amoxic-Pot Clav 875-125Mg 1 tab PO Q12HR 7 Days #14 tab 09/27/24 [Augmentin 875-125] Allergies Allergy/AdvReac Type Severity Reaction Status Date / Time No Known Allergies Allergy Verified 05/10/21 21:33 Review of Systems ROS Statement: Those systems with pertinent positive or pertinent negative responses have been documented in the HPI. ROS Other: All systems not noted in ROS Statement are negative. Past Medical History Additional Past Medical History / Comment(s): opiate addiction (PAIN MEDS) INFECTED FINGER History of Any Multi-Drug Resistant Organisms: None Reported Additional Past Surgical History / Comment(s): rhinoplasty RIGHT POINTER CUT AND INFECTED I & D (GISELL LANDA). Past Anesthesia/Blood Transfusion Reactions: No Reported Reaction Past Psychological History: Anxiety Smoking Status: Former smoker Past Alcohol Use History: Rare Past Drug Use History: Marijuana, Opiates - Past Family History Mother Family Medical History: No Reported History General Exam Limitations: no limitations General appearance: alert, in no apparent distress Head exam: Present: atraumatic, normocephalic, normal inspection Eye exam: Present: normal appearance, EOMI Neck exam: Present: normal inspection. Absent: meningismus Respiratory exam: Absent: respiratory distress Left Hand Wrist exam: Present: tenderness, swelling, laceration. Absent: full ROM (Limited secondary to pain) Neurological exam: Present: alert, oriented X3 Psychiatric exam: Present: normal affect, normal mood Expanded Type of lesion: Present: laceration (Patient has multiple lacerations to the left hand and foot) Course Vital Signs 09/27/24 09/27/24 15:16 15:22 Temperature 98.4 F Pulse Rate 110 H 78 Respiratory 20 22 Rate Blood Pressure 127/78 120/65 O2 Sat by Pulse 95 98 Oximetry Procedures - Laceration Laceration #1 Consent Obtained: verbal consent Indication: laceration Site: hand Size (cm): 2 Description: linear Depth: simple, single layer Anesthetic Used: lidocaine 1%, without epi Anesthesia Technique: local infiltration Pre-repair: wound explored, irrigated extensively Type of Sutures: nylon Size of Sutures: 4-0 Number of Sutures: 2 Technique: simple, interrupted Laceration #2 Consent Obtained: verbal consent Indication: laceration Site: hand Size (cm): 2 Description: linear Depth: simple, single layer Anesthetic Used: lidocaine 1%, without epi Pre-repair: wound explored, irrigated extensively, foreign body removed (dog hair) Type of Sutures: nylon Size of Sutures: 4-0 Number of Sutures: 2 Technique: simple, interrupted Laceration #3 Consent Obtained: verbal consent Indication: laceration Site: hand Size (cm): 1 Description: linear Depth: simple, single layer Anesthetic Used: lidocaine 1%, without epi Pre-repair: wound explored, irrigated extensively Type of Sutures: nylon Size of Sutures: 4-0 Number of Sutures: 1 Technique: simple, interrupted Laceration #4 Consent Obtained: verbal consent Indication: laceration Site: hand Size (cm): 1 Description: linear Depth: simple, single layer Anesthetic Used: lidocaine 1%, without epi Anesthesia Technique: local infiltration Pre-repair: wound explored, irrigated extensively Type of Sutures: nylon Size of Sutures: 4-0 Number of Sutures: 1 Technique: simple, interrupted Laceration #5 Consent Obtained: verbal consent Site: foot Size (cm): 3 Description: linear Depth: simple, single layer Anesthetic Used: lidocaine 1%, without epi Anesthesia Technique: local infiltration Pre-repair: wound explored, irrigated extensively Type of Sutures: nylon Size of Sutures: 4-0 Number of Sutures: 2 Technique: simple, interrupted Medical Decision Making - Medical Decision Making Was pt. sent in by a medical professional or institution (, PA, MEAT PACKER, urgent care, hospital, or shelter...) When possible be specific @ -No Did you speak to anyone other than the patient for history (EMS, parent, family, police, friend...)? What history was obtained from this source @ -No Did you review nursing and triage notes (agree or disagree)? Why? @ -I reviewed and agree with nursing and triage notes Were old charts reviewed (outside hosp., previous admission, EMS record, old EKG, old radiological studies, urgent care reports/EKG's, shelter records)? Report findings @ -No old charts were reviewed Differential Diagnosis (chest pain, altered mental status, abdominal pain women, abdominal pain men, vaginal bleeding, weakness, fever, dyspnea, syncope, headache, dizziness, GI bleed, back pain, seizure, CVA, palpatations, mental health, musculoskeletal)? @ -Differential includes uncomplicated dog bite, fracture, dislocation, not an all-inclusive list EKG interpreted by me (3pts min.). @ -As above X-rays interpreted by me (1pt min.). @ -X-rays of the foot and hand are negative for acute osseous process CT interpreted by me (1pt min.). @ -None done U/S interpreted by me (1pt. min.). @ -None done What testing was considered but not performed or refused? (CT, X-rays, U/S, labs)? Why? @ -None What meds were considered but not given or refused? Why? @ -None Did you discuss the management of the patient with other professionals (professionals i.e. , PA, MEAT PACKER, lab, RT, psych nurse, director of social work, recycling operator, teacher, training systems officer, case supervisor)? Give summary @ -No Was smoking cessation discussed for >3mins.? @ -No Was critical care preformed (if so, how long)? @ -No Were there social determinants of health that impacted care today? How? (Homelessness, low income, unemployed, alcoholism, drug addiction, transportation, low edu. Level, literacy, decrease access to med. care, long term, rehab)? @ -No Was there de-escalation of care discussed even if they declined (Discuss DNR or withdrawal of care, Hospice)? DNR status @ -No What co-morbidities impacted this encounter? (DM, HTN, Smoking, COPD, CAD, Cancer, CVA, ARF, Chemo, Hep., AIDS, mental health diagnosis, sleep apnea, morbid obesity)? @ -None Was patient admitted / discharged? Hospital course, mention meds given and route, prescriptions, significant lab abnormalities, going to OR and other pertinent info. @ -34-year-old male presenting with chief complaint of dog bite. From his own dog at home. Tetanus is updated today. X-rays are negative for fracture or dislocation. Patient has multiple punctures to the left hand and left foot. The larger wounds are loosely approximated after soaking in iodine and being thoroughly irrigated. Patient started on Augmentin. Educated on wound care and signs of infection. Follow-up with PCP. Report back to ER with any new or worsening symptoms. Discussed return parameters and answered all questions. Patient conveyed verbal understanding and agreed to the plan. I discussed this case in detail with my attending Dr. Duarte Undiagnosed new problem with uncertain prognosis? @ -No Drug Therapy requiring intensive monitoring for toxicity (Heparin, Nitro, Insulin, Cardizem)? @ -No Were any procedures done? @ -Laceration repair Diagnosis/symptom? @ -Dog bite Acute, or Chronic, or Acute on Chronic? @ -Acute Uncomplicated (without systemic symptoms) or Complicated (systemic symptoms)? @ -Uncomplicated Side effects of treatment? @ -No Exacerbation, Progression, or Severe Exacerbation? @ -No Poses a threat to life or bodily function? How? (Chest pain, [place], [place], pneumonia, PE, COPD, DKA, ARF, appy, cholecystitis, CVA, Diverticulitis, Homicidal, Suicidal, threat to staff... and all critical care pts) @ -Unlikely Disposition Clinical Impression: Dog bite Disposition: HOME SELF-CARE Condition: Good Instructions (If sedation given, give patient instructions): Animal Bite (ED) Additional Instructions: Follow-up with PCP. Report back to ER with any new or worsening symptoms. Take Motrin and Tylenol as needed for pain control. Keep the area clean dry and covered. Wash daily with soap and water. Take medication as prescribed. Sutures may be removed in 10 to 14 days. Prescriptions: Amoxic-Pot Clav 875-125Mg [Augmentin 875-125] 1 tab PO Q12HR 7 Days #14 tab Is patient prescribed a controlled substance at d/c from ED?: No Referrals: Altaf Bowman MD [Primary Care Provider] - 1-2 days Edward Burger MD [STAFF PHYSICIAN] - 1-2 days Time of Disposition: 17:10
[2024-09-27] MEDS: AMOXIC-POT CLAV 875-125MG 1 EACH TAB PO STA (17:28)
[2024-09-27 17:53] VITALS: BP 119/68; PULSE 68; RESP 18; TEMP 98.3
== END 2024-09-27 17:45 | disposition home or self-care (01) ==
LOC: EC 15:15
DX: S61.412A Laceration without foreign body of left hand, initial encounter (principal); S91.312A Laceration without foreign body, left foot, initial encounter; Z87.891 Personal history of nicotine dependence; Z23 Encounter for immunization; W54.0XXA Bitten by dog, initial encounter
CPT/HCPCS: 99283; 90471; 96372; 12004; 73130; 73630; 90715; J1885